=== PATIENT | male | born 1970 | race Caucasian/White ===

== ENCOUNTER 2016-12-16 06:28 | Emergency (ER) | payer SELFPAY | END 2016-12-16 08:13 | disposition home or self-care (01) | LOC: D.ER 06:28 | DX: M54.2 Cervicalgia (principal); J45.909 Unspecified asthma, uncomplicated; F17.200 Nicotine dependence, unspecified, uncomplicated ==

== ENCOUNTER → 2018-08-30 14:57 | Outpatient (CLI) | payer OTHER | END | disposition home or self-care (01) | LOC: D.RAD 14:57 | DX: R05 Cough (principal); R06.2 Wheezing ==

== ENCOUNTER 2019-12-04 06:22 | Outpatient (CLI) | payer OTHER ==
[~2019-12-04] VITALS: Ht 172.7 cm; Wt 76.4 kg
--- NOTE | ~2019-12-04 | HEMODYNAMI ---
PATIENT:NESS CENTENO MEDICAL RECORD: [id number] : 74 LOCATION:D.CAT ADMISSION DATE: 12/04/19 Generatedon:12/05/201910:26 Patient name: NESS CENTENO Patient #: [id number] SSN: [id number] : 1970 Date of study: 12/04/2019 Page: Of Hemodynamic Procedure Report Patient Data Patient Demographics First Name: NESS Gender: Male Last Name: JACOBO : 1970 Middle Initial: RAY Age: 49 year(s) Patient #: [id number] Race: Unknown SSN: [id number] Additional ID: [id number] Contact details Address: [address] [place] [address] State: [place] City: [place] Zip code: [address] Past Medical History Allergies: No known allergies Admission Admission Data Admission Date: 12/04/2019 Admission Time: 6:22 Arrival Date: 12/04/2019 Arrival Time: 0:00 Admit Source: Emergency Insurance Payor: Private department health insurance [facility] #: [id number] Height (in.): 67.72 BSA: 1.89 (m2) Height (cm.): 172 BMI: 25.69 (kg/m2) Weight (lbs.): 167.55 Weight (kg.): 76 Lab Results Lab Result Date: 12/04/2019 Lab Result Time: 0:00 Biochemistry Name Units Result Min Max BUN mg/dl 11 --(-*--)-- 7 18 Creatinine mg/dl 0.9 --(-*--)-- 0.6 1.3 CBC Name Units Result Min Max Hemoglobin g/dl 16.9 --(---*)-- 13.5 17.5 Procedure Procedure Types Cath Procedure Diagnostic Procedure LHC LHC w/Coronaries Sedation Charges Moderate Sedation up to 15 minutes Procedure Description Procedure Date Procedure Date: 12/04/2019 Procedure Start Time: 9:18 Procedure End Time: 9:58 Procedure Staff Name Function Crystal SMITH Scrub Jeromy Lezama MD Performing Physician Jacey Quinn RT Monitor Rena Howard RN Nurse Indication Chest pain Procedure Data Cath Procedure Fluoroscopy Diagnostic fluoroscopy Total fluoroscopy Time: 1.1 time: 1.1 min min Diagnostic fluoroscopy Total fluoroscopy dose: 209 dose: 209 mGy mGy Contrast Material Contrast Material Type Amount (ml) Isovue 300 39 Entry Location Entry Primary Successful Side Size Upsize Upsize Entry Closure Succes sful Closure Location (Fr) 1 (Fr) 2 (Fr) Remarks Device Remarks Femoral Right 5 Fr Exoseal artery Estimated blood loss: 10 ml Diagnostic catheters Device Type Used For End Catheter Placement MULTIPACK Pigtail 5 Fr Procedure catheter MULTIPACK JL 4.0 5Fr Procedure catheter DIAGNOSTIC JL 5 5Fr Procedure catheter ([id number]) MULTIPACK 3DRC 5Fr Procedure catheter Procedure Complications No complications Procedure Medications Medication Administration Route Dosage 0.9% NaCl I.V. 100 ml/hr Oxygen etCO2 Nasal cannula 2 l/min Lidocaine 2% added to field 20 Heparin Flush Bag added to field 2 bags (1000units/500ml NS) Versed I.V. 2 mg Fentanyl I.V. 50 mcg Versed I.V. 2 mg Fentanyl I.V. 50 mcg Versed I.V. 2 mg Fentanyl I.V. 50 mcg Hemodynamics Rest BSA: 1.89 (m2) HGB: 16.9 (g/dl) O2 Consumption: Estimated: 228.52 (ml/min) O2 Co nsumption indexed: Estimated:120.91 (ml/min/m) Heart Rate: 72 (bpm) Snapshots Pre Cath Intra NCS Post Cath Vital Signs Time Heart Resp SPO2 etCO2 NIBP (mmHg) Rhythm Pain Sedation Rate (ipm) (%) (mmHg) Status Level (bpm) 9:30:29 73 31 98 29 151/99(117) NSR 0 (11) 10(A) , No pain 9:34:39 75 10 97 22.7 141/102(120) NSR 0 (11) 10(A) , No pain 9:38:47 70 19 96 27.3 133/89(105) NSR 0 (11) 10(A) , No pain 9:42:50 68 21 97 29.6 131/92(109) NSR 0 (11) 10(A) , No pain 9:46:56 71 17 97 15.1 130/87(109) NSR 0 (11) 10(A) , No pain 9:51:02 71 18 96 28.1 130/85(107) NSR 0 (11) 10(A) , No pain 9:55:10 74 16 97 33.4 123/79(97) NSR 0 (11) 10(A) , No pain Medications Time Medication Route Dose Verified Delivered Reason Notes Effe ctiveness by by 9:29:45 0.9% NaCl I.V. 100 Jeromy Rena used for ml/hr Teja Howard laboratory animal care veterinarian 9:29:51 Oxygen etCO2 2 Jeromy Rena used for Nasal l/min Teja Howard procedure cannula RN 9:29:56 Lidocaine 2% added 20ml Jeromy Jeromy for local to vial Teja Lezama MD anesthetic field 9:30:00 Heparin Flush added 2 Jeromy Jeromy for local Bag to bags Teja Lezama MD anesthetic (1000units/500ml field NS) 9:47:06 Versed I.V. 2 mg Jeromy Rena for Teja Howard sedation RN 9:47:12 Fentanyl I.V. 50 Jeromy Rena for mcg Teja Howard sedation RN 9:51:22 Versed I.V. 2 mg Jeromy Rena for Teja Howard sedation RN 9:51:29 Fentanyl I.V. 50 Jeromy Rena for mcg Teja Howard sedation RN 9:55:20 Versed I.V. 2 mg Jeromy Rena for Teja Howard sedation RN 9:55:36 Fentanyl I.V. 50 Jeromy Rena for mcg Teja Howard sedation grinder carbon plant Log Time Note 18:40:47 Local anesthetic to right radial artery with Lidocaine 2% by Jeromy Lezama MD.INITIAL ACCESS ONLY 9:16:51 Arrival Date: 12/04/2019 12:00:00 AM 9:17:02 Admit Source: Emergency department 9:17:08 Insurance Payor : Private health insurance 9:17:13 Patient Height : 67.72 inches 9:17:17 Patient Weight : 167.55 lbs 9:17:52 Lab Result : Hemoglobin 16.9 g/dl 9:17:52 Lab Result : Creatinine 0.9 mg/dl 9:17:52 Lab Result : BUN 11 mg/dl 9:18:04 Diagnostic Cath Status : Emergency 9:18:51 Indication : Chest pain 9:19:14 Procedure Status Urgent Heart Cath (IP). 9:19:18 Rena Howard RN sent for patient. Start room use. 9:19:19 Time tracking: Regular hours (M-F 7:00 - 5:00) 9:19:24 Plan of Care:Hemodynamics will remain stable., Cardiac rhythm will remain stable., Comfort level will be maintained., Respiratory function will remain adequate., Patient/ family verbilizes understanding of procedure., Procedure tolerated without complication., Recovers from procedure without complications.. 9:19:37 H&P Date Dictated: 12/04/2019 Emergent; H&P N/A. 9:20:29 Patient arrives emergently. 9:20:35 Patient received from ED to CCL 2 Alert and oriented. Tansferred to table in Supine position. 9:20:36 Correct patient and procedure confirmed by team. 9:20:36 Warm blankets applied, and petra hugger turned on for patient comfort. 9:20:37 ECG and BP/O2 sat monitors applied to patient. 9:21:37 Pre-op teaching completed and patient verbalized understanding. 9:21:46 Family in waiting room. 9:21:48 Patient NPO since Midnight. 9:21:56 Patient allergic to No known allergies 9:22:00 Is the patient allergic to Iodine/contrast media? No. 9:22:06 Was the patient premedicated? Yes 9:22:08 Is patient on blood thinner?No 9:22:13 Patient diabetic? No. 9:22:18 Snore? No 9:22:21 Sleep apnea? No 9:22:28 Dentures? Yes in tight 9:22:34 Patient pain scale 0/10 ?. 9:22:42 IV patent on arrival in left forearm with 0.9% NaCl at O. 9:22:45 Lab results completed and on chart. 9:22:51 Stress Test: no; N/A ? 9:29:23 Vital chart was started 9:29:45 0.9% NaCl 100 ml/hr I.V. was administered by Rena Howard RN; used for procedure; Verbal order read back and verified. 9:29:51 Oxygen 2 l/min etCO2 Nasal cannula was administered by Rena Howard RN; used for procedure; Verbal order read back and verified. 9:29:56 Lidocaine 2% 20ml vial added to field was administered by Jeromy Lezama MD; for local anesthetic; Verbal order read back and verified. 9:30:00 Heparin Flush Bag (1000units/500ml NS) 2 bags added to field was administered by Jeromy Lezama MD; for local anesthetic; Verbal order read back and verified. 9:34:22 Maximum allowable contrast dose (3.7 X eGFR X 0.75)249 ml. 9:34:26 1) 90+ Normal kidney functon but urine findings or structural abnormalities or genetic trait point to kidney disease. 9:38:16 Baseline sample Acquired. 9:38:18 Full Disclosure recording started 9:38:29 Risk of Mortality: .5 9:38:32 Risk of blood transfusion: 3.3 9:38:36 Risk of QUEENIE: 6.7 9:38:44 Alarms reviewed by R. N. 9:38:45 Sharps counted by scrub and verified by R.N. 9:46:13 Physician arrived 9:46:19 --------ALL STOP TIME OUT------ 9:46:20 Final Timeout: patient, procedure, and site verified with staff and physician. All members of the team are in agreement. 9:46:22 Right Radial & Right Groin site verified by team. 9:46:26 Fire Safety Assessment: A--An alcohol-based skin anteseptic being used preoperatively., C--Open oxygen or nitrous oxide is being used., D--An ESU, laser, or fiber-optic light is being used. 9:46:31 Physical assessment completed. ASA score P 2 - A patient with mild systemic disease as per Jeromy Lezama MD. 9:46:35 Sedation plan: IV Moderate Sedation Medication:Versed, Fentanyl 9:46:39 Use device set Radial Dx or PCI 9:46:41 ACIST Syringe (05224) opened to sterile field. 9:46:42 ACIST Hand Control (29367) opened to sterile field. 9:46:42 Bag Decanter () opened to sterile field. 9:46:42 Medline Cath Pack ([id number]) opened to sterile field. 9:46:43 ACIST Manifold (08040) opened to sterile field. 9:46:44 Tegaderm 4 x 4 (1626W) opened to sterile field. 9:47:06 Versed 2 mg I.V. was administered by Rena Howard RN; for sedation; Verbal order read back and verified. 9:47:09 MBrace Wrist Support ([id number]) opened to sterile field. 9:47:10 EMERALD Guide Wire (502-792) opened to sterile field. 9:47:11 SHEATH 6FR RAIN ([id number]) opened to sterile field. 9:47:12 Fentanyl 50 mcg I.V. was administered by Rena Howard RN; for sedation; Verbal order read back and verified. 9:48:44 Procedure started. 9:50:18 Local anesthetic to right femoral vein with Lidocaine 2% by Jeromy Lezama MD.ADDITIONAL ACCESS 9:50:38 A 5 Fr sheath was inserted into the Right Femoral artery 9:51:22 Versed 2 mg I.V. was administered by Rena Howard RN; for sedation; Verbal order read back and verified. 9:51:24 DIAGNOSTIC Multipack 5Fr catheter set ([id number]) opened to sterile field. 9:51:29 Fentanyl 50 mcg I.V. was administered by Rena Howard RN; for sedation; Verbal order read back and verified. 9:51:32 SHEATH 5FR [place] (VWF211) opened to sterile field. 9:51:44 A MULTIPACK Pigtail 5 Fr catheter was advanced over the wire and used for Procedure. 9:51:48 LV angiography performed. 9:52:42 EF : 55 % 9:52:55 Catheter removed. 9:53:55 A MULTIPACK JL 4.0 5Fr catheter was advanced over the wire and used for Procedure. 9:54:01 Catheter removed. 9:54:12 A DIAGNOSTIC JL 5 5Fr catheter ([id number]) was advanced over the wire and used for Procedure. 9:54:18 LCA angiography performed. 9:54:54 Catheter removed. 9:55:01 A MULTIPACK 3DRC 5Fr catheter was advanced over the wire and used for Procedure. 9:55:15 RCA angiography performed. 9:55:20 Versed 2 mg I.V. was administered by Rena Howard RN; for sedation; Verbal order read back and verified. 9:55:36 Fentanyl 50 mcg I.V. was administered by Rena Howard RN; for sedation; Verbal order read back and verified. 9:55:46 Catheter removed. 9:56:00 EXOSEAL 5Fr (EX500) opened to sterile field. 9:56:28 Sheath removed intact; hemostasis achieved with Exoseal to the Right Femoral artery. 9:56:32 Procedure ended.(Physican Out) 9:56:44 Fluoroscopy time 01.10 minutes. 9:56:49 Fluoroscopy dose: 209 mGy 9:56:49 Flurop Dose total: 209 9:56:53 Dose Area Product 03308 mGy/cm. 9:57:04 Contrast amount:Isovue 300 39ml. 9:57:08 Maximum allowable dose exceeded? No. 9:57:09 Sharps counted by scrub and verified by R.N. 9:57:10 Insertion/operative site no bleeding no hematoma. 9:57:13 Post Procedure Pulses reassessed and unchanged 9:57:25 Post-procedure physical assessment completed. ASA score P 2 - A patient with mild systemic disease as per Jeromy Lezama MD. 9:57:29 Post procedure rhythm: unchanged. 9:57:33 Estimated blood loss: 10 ml 9:57:34 Post procedure instruction explained to patient.Patient verbalizes understanding. 9:57:47 Procedure type changed to Cath procedure, Diagnostic procedure, LHC, [facility] w/Coronaries, Sedation Charges, Moderate Sedation up to 15 minutes 9:57:49 Procedure and supply charges have been captured, reviewed, submitted and are correct. 9:58:09 Procedure Complication : No complications 9:58:14 Vital chart was stopped 9:58:15 [facility] Findings: mild to moderate CAD (<70%) 9:58:19 Report given to Pre/Post Procedure Room. 9:58:23 Patient transfered to Pre/Post Procedure Room with Stretcher. 9:58:26 Full Disclosure recording stopped 9:58:26 Procedure ended. 9:58:31 End room use (Document Last) 9:58:48 End room use (Document Last) 9:59:20 End room use (Document Last) 10:23:06 Procedural date and time in report changed due to global time stamp issue within application. Known issue with [employer]. [employer] currently working on solution.. Device Usage Item Name Manufacture Quantity Catalog Hospital Part Current Minima l Lot# / Number Charge Number Stock Stock Serial# Code ACIST Acist 1 00527 137343 325994 963271 20 Syringe Medical (03833) Systems Inc Medline Medline 1 [id number] 208457 20807 535812 5 Cath Pack ([id number]) Bag Microtek 1 2001S 049894 64327 930288 5 Decanter Medical Inc. (2001S) ACIST Hand Acist 1 80553 585157 911989 799451 5 Control Medical (60746) Systems Inc ACIST Acist 1 08332 982212 328957 069669 5 Manifold Medical (28434) Systems Inc Tegaderm 4 3M 1 1626W 007920 346904 463586 5 x 4 (1626W) MBrace Advanced 1 140-0250-00 916805 85006 178005 5 Wrist Vascular Support Dynamics ([id number]) EMERALD Cardinal 1 502-455 438756 672506 925147 5 Guide Wire Health (502-455) SHEATH 6FR Cardinal 1 2170439 957304 4524219 447462 5 [facility] (0237587) DIAGNOSTIC Cardinal 1 RB1164 971248 76232 878064 [facility] [employer] 5Fr catheter set (AA5194) SHEATH 5FR Terumo 1 WOR246 605539 828209 306107 5 [place] (RAQ323) MULTIPACK Cardinal 1 310299 5 Pigtail 5 Health Fr catheter MULTIPACK Cardinal 1 413826 5 JL 4.0 5Fr Health catheter DIAGNOSTIC Cardinal 1 [id number] 113118 765143 606815 5 JL 5 5Fr Health catheter (133781Z) MULTIPACK Cardinal 1 096680 5 3DRC 5Fr Health catheter EXOSEAL 5Fr Cardinal 1 EX500 145615 792894 062877 10 (EX500) Health Signature Audit [place] Stage Time Signature Unsigned Intra-Procedure 12/04/2019 Jacey Quinn 9:58:48 AM RT(R) Intra-Procedure 12/04/2019 Rena Howard 9:59:20 AM RN Intra-Procedure 12/04/2019 Jeromy Lezama MD 9:59:41 AM 12/05/2019 10:20:36 AM Intra-Procedure 12/05/2019 Jermoy Lezama 10:26:25 AM [facility] [address] [place] [address]
[2019-12-04] MEDS ORDERED: ALBUTEROL SULF8.5 GM (06:32)
[2019-12-04 06:56] LABS: CALC OSMOLALITY 272 mosm/kg (275-300); CARBON DIOXIDE 25.2 mmol/L (21.0-32.0); CHLORIDE - SERUM 102 mmol/L (98-107); CREATININE - SERUM 0.9 mg/dL (0.6-1.3); GLUCOSE 101 mg/dL (74-106); SODIUM 137 mmol/L (136-145); UREA NITROGEN 11 mg/dL (7-18); eGFR NON AFRICAN AMERICAN > 90 mL/min (90-120)
[2019-12-04 07:04] LABS: POTASSIUM - SERUM 5.2 mmol/L (3.5-5.1)
[2019-12-04 07:12] LABS: INR 0.88 (0.85-1.17); PROTIME 11.9 SECONDS (11.6-15.0)
[2019-12-04 07:17] LABS: ALBUMIN 4.2 g/dL (3.4-5.0); ALKALINE PHOSPHATASE 68 U/L (46-116); ALT (SGPT) 50 U/L (10-68); BILIRUBIN - TOTAL 0.77 mg/dL (0.2-1.3); PROTEIN - SERUM 8.1 g/dL (6.4-8.2)
[2019-12-04 07:18] LABS: CKMB 2.1 U/L (0.0-3.6); CREATINE KINASE 254 UL (21-232); TROPONIN-I < 0.017 ng/mL (0.000-0.060)
[2019-12-04 07:45] VITALS: BP 184/106
[2019-12-04 07:50] VITALS: Ht 172.7 cm; Wt 76.4 kg
[2019-12-04 08:10] LABS: BASOPHILS 0.1 % (0-2); EOSINOPHILS 5.1 % (0-7); HEMATOCRIT 48.4 % (42.0-54.0); HEMOGLOBIN 16.9 g/dL (13.5-17.5); IMMATURE GRANULOCYTES 0.1 % (0-5); LYMPHOCYTES 22.8 % (15-50); MCH 34.1 pg (26.0-34.0); MCHC 34.9 g/dL (31.0-37.0); MCV 97.6 fL (80.0-100.0); MEAN PLATELET VOLUME 10.4 fL (7.4-10.4); MONOCYTES 9.7 % (2-11); NEUTROPHILS 62.2 % (40-80); PLATELET COUNT 158 10x3/uL (130-400); RBC 4.96 10x6/uL (4.20-6.10); RDW 13.5 % (11.5-14.5); WBC 7.2 10x3/uL (4.8-10.8)
--- NOTE | 2019-12-04 10:20 | NUR ---
PATIENT ARRIVED TO ROOM 1, PLACED ON 2L NC AND CM. VSS. RIGHT GROIN DRESSING IS CDI, NO S/S OF BLEEDING OR HEMATOMA. WILL CONTINUE TO MONITOR.
[2019-12-04] MEDS ORDERED: BENADRYL25 MG PO (10:30)
--- NOTE | 2019-12-04 10:35 | NUR ---
PATIENT RESTING, VSS ON 2L NC. RIGHT GROIN DRESSING IS CDI, NO S/S OF BLEEDING OR HEMATOMA. NO C/O PAIN, NUMBNESS, OR TINGLING. SPOUSE PRESENT AT BEDSIDE. NO N/V.
--- NOTE | 2019-12-04 11:05 | NUR ---
HEAD OF BED ELEVATED TO 45 DEGREES. RIGHT GROIN SITE IS CDI, NO S/S OF BLEEDING OR HEMATOMA. NO C/O PAIN, NUMBNESS, OR TINGLING. PATIENT GIVEN TURKEY SANDWICH AND COFFEE PER REQUEST, NO N/V. VSS ON ROOM AIR.
--- NOTE | 2019-12-04 11:35 | NUR ---
HEAD OF BED AT 90 DEGREES. RIGHT GROIN DRESSING IS CDI, NO S/S OF BLEEDING OR HEMATOMA. NO C/O PAIN, NUMBNESS, OR TINGLING. VSS ON ROOM AIR. WRITTEN AND VERBAL DISCHARGE INSTRUCTIONS GIVEN TO PATIENT AND SPOUSE, BOTH VOICE UNDERSTANDING. PERIPHERAL IV REMOVED WITH CATHLON INTACT.
--- NOTE | 2019-12-04 12:00 | NUR ---
PATIENT VOIDED WITHOUT DIFFICULTY. PATIENT TRANSPORTED VIA WHEELCHAIR TO CAR WITH SPOUSE DRIVING, ALL BELONGINGS WITH PATIENT.
--- NOTE | 2019-12-05 14:04 | CN ---
PATIENT NAME:NESS CENTENO MEDICAL RECORD: [id number] : 74 LOCATION:D.CAT ADMIT DATE: ACCOUNT: [id number] CONSULTING PHYSICIAN: LISS JORGE MD REFERRING PHYSICIAN: DARIANA HAYES MD DATE OF CONSULTATION: 12/04/2019 ADMITTING DIAGNOSES: 1. Chest pain compatible with unstable angina. 2. Family history of coronary artery disease. 3. Hyperlipidemia. 4. Smoking. 5. Hypertension. HISTORY OF PRESENT ILLNESS: This is a gentleman who had his first episode of chest pain last week. It awoke him from sleep, it was a dull aching heaviness across the chest, like a brick on his chest. This lasted only approximately 5 minutes. Due to his family history, he started aspirin at that time. He had shortness of breath that he noted for the past week; however, no further chest pain until last night and this morning again it awoke him from sleep; however, this time it lasted approximately 30 minutes. It resolved. He tried to go to work, which is not a physically strenuous job. He had a recurrence of the pain, presented to the Emergency Room, was relieved with sublingual nitros. He is now having a recurrence of the pain. It is again a relatively classic anginal pain with a brick sitting on his chest. He states now it is worsened to a cinder block sitting on his chest and a band-like sensation across the anterior chest as well. He is having trouble getting his breath. He is hypertensive with systolic blood pressures in the 180s. The nitro has brought the blood pressure down, but the pain continues. OVERALL IMPRESSION: At this time, we will add a calcium channel jesse. We will not add a beta jesse as his heart rates in the 60s and 70s. We will add a calcium channel jesse. Continue the nitrates if he continues to have the chest pain. We will proceed with coronary angiography. TRANSINT:[id number] Voice Confirmation ID: [id number] DOCUMENT ID: [id number] LISS JORGE MD at 1404 CC: [id number] DICTATION DATE: 12/04/19 0752 APPLICATION PENETRATION TESTER: 12/04/19 1033 DEP CLI 12/04/19 [place] [id number]
--- NOTE | 2019-12-05 14:04 | OP ---
PATIENT NAME: NESS CENTENO MEDICAL RECORD: [id number] :74 LOCATION:D.CAT ADMISSION DATE: SURGEON: LISS JORGE MD DATE OF OPERATION: 12/04/2019 DATE OF SERVICE: 12/04/2019 PROCEDURES: 1. Left heart catheterization. 2. Selective coronary angiography. 3. Left ventriculogram. INDICATION: Chest pain compatible with angina. PROCEDURE IN DETAIL: After informed consent was obtained and after a detailed description of the risks, benefits as well as alternative therapies, the patient elected to proceed with angiogram and heart catheterization. The right radial area was prepped and draped in normal sterile fashion. Right radial artery was cannulated via modified Seldinger technique with placement of 5-[place] sheath. All catheters exchanged through this sheath. FINDINGS: Left ventriculogram was performed in standard 30-degree DAVIS view, reveals good cardiac wall motion, ejection fraction estimated at 60%. SELECTIVE CORONARY ANGIOGRAPHY: Left main, left anterior descending, left circumflex, right coronary are all smooth-walled vessels with no angiographic evidence of coronary artery disease. OVERALL IMPRESSION: 1. No angiographic evidence of coronary artery disease. 2. Normal left heart pressures. 3. Normal left ventricular systolic function. Chest pain is noncardiac in etiology. No other cardiac workup needs to be ascertained. TRANSINT:[id number] Voice Confirmation ID: [id number] DOCUMENT ID: [id number] LISS JORGE MD at 1404 CC: [id number] DICTATION DATE: 12/04/19 1001 LABORATORY PHLEBOTOMIST: 12/04/19 1253 DEP CLI 12/04/19 [place] [id number]
== END 2019-12-04 12:00 ==
LOC: D.ER 06:22 → D.CATH 06:22 → EDSTATUS 10:47 → D.CATH 12:00
PROVIDERS: Family Medicine; ATTEND Family Medicine
DX: R07.9 Chest pain, unspecified (principal); Z82.49 Family history of ischemic heart disease and other diseases of the circulatory system; E78.5 Hyperlipidemia, unspecified; Z72.0 Tobacco use; I10 Essential (primary) hypertension